=== PATIENT | male | born 1990 | race Caucasian/White ===

== ENCOUNTER 2018-12-10 05:06 | Emergency (ER) | payer MEDICAID, OTHER ==
[~2018-12-10] VITALS: Ht 175.3 cm; Wt 79.3 kg
[2018-12-10 05:15] VITALS: Ht 175.3 cm; Wt 79.3 kg
--- NOTE | 2018-12-10 06:31 | ERD ---
ER Documentation Chief Complaint Chief Complaint R pelvic/scrotal pain since last nite HPI This is a 28-year-old male with history of meth abuse, last used 2 days ago presents to the ED with right-sided testicular pain and swelling times 2 days. Patient states he was being given "aggressive "oral intercourse a few days ago when he woke up with right-sided scrotal pain the day afterwards. Patient states he initially felt a little lump on his right testicle which has since been getting progressively bigger. Patient states he woke up this morning with a swollen and painful testicle and therefore came here for further evaluation. Scrotal pain is described as heavy and worse with certain movements. He denies any other trauma. He also reports urinary frequency since having oral intercourse. He denies any dysuria, hematuria, fever, nausea, vomiting, flank pain or abdominal pain. He is otherwise healthy with no other complaints. ROS All systems reviewed and are negative except as per history of present illness. Medications Home Meds Active Scripts Doxycycline Hyclate* (Doxycycline Hyclate*) 100 Mg Tablet.dr, 100 MG PO BID for 10 Days, TAB Prov:JODI MAGALLANES PA-C 12/10/18 Allergies Allergies: Coded Allergies: plum (Verified Allergy, Unknown, 12/10/18) PMhx/Soc History of Surgery: No Anesthesia Reaction: No Hx Neurological Disorder: No Hx Respiratory Disorders: No Hx Cardiac Disorders: No Hx Psychiatric Problems: No Hx Miscellaneous Medical Probl: No Hx Alcohol Use: Yes Hx Substance Use: Yes (METH) Hx Tobacco Use: Yes Smoking Status: Current some day smoker Physical Exam Vitals Vital Signs Date Temp Pulse Resp B/P (MAP) Pulse Ox O2 O2 Flow FiO2 Time Delivery Rate 12/10/18 98.9 79 18 118/69 99 Room Air 08:54 (85) 12/10/18 99.2 85 18 115/68 99 05:15 (84) Physical Exam Const: No acute distress Head: Atraumatic Eyes: Normal Conjunctiva ENT: Normal External Ears, Nose and Mouth. Neck: Full range of motion. No meningismus. Resp: Clear to auscultation bilaterally Cardio: Regular rate and rhythm, no murmurs Abd: Soft, non tender, non distended. Normal bowel sounds. Exam: Scrotum: Normal Hernia: None Testes/Epid: + Right testicle moderate tenderness to palpation, erythematous, swollen. Left testicle normal. Normal lie. Cremaster: Reflex intact Lymph: No inguinal lymphadenopathy Discharge: None Skin: No petechiae or rashes Back: No midline or flank tenderness Ext: No cyanosis, or edema Neur: Awake and alert Psych: Normal Mood and Affect Results 24 hrs Laboratory Tests Test 12/10/18 07:30 Urine Color YELLOW Urine Clarity CLEAR Urine pH 5.0 Urine Specific [place] 1.020 Urine Ketones NEGATIVE mg/dL Urine Nitrite NEGATIVE mg/dL Urine Bilirubin NEGATIVE mg/dL Urine Urobilinogen NEGATIVE mg/dL Urine Leukocyte Esterase NEGATIVE Bryant/ul Urine Hemoglobin NEGATIVE mg/dL Urine Glucose NEGATIVE mg/dL Urine Total Protein NEGATIVE mg/dl Current Medications Medications Dose Sig/Taqueria Start Time Status Last (Trade) Ordered Route PRN Stop Time Admin Dose Reason Admin Ceftriaxone 250 mg ONCE ONCE 12/10/18 DC 12/10/18 Sodium IM 09:00 08:46 (Rocephin) 12/10/18 09:00 Ceftriaxone 50 ml @ ONCE ONCE 12/10/18 DC Sodium 100 mls/hr IVPB 09:00 12/10/18 09:00 Procedures/MDM EMERGENT LABS AND DIAGNOSTIC STUDIES: Lab Results above were reviewed and interpreted by me as below. Urine: no significant hematuria or pyuria Radiology Results as interpreted by Radiology: PROCEDURE: US Scrotum. CLINICAL INDICATION: Pain TECHNIQUE: Multiple sonographic images of the scrotal region were obtained utilizing a linear array transducer with grayscale and color-flow and a Doppler imaging. The images were reviewed on a high-resolution PACS workstation. COMPARISON: None. FINDINGS: The right testicle measures 5.0 x 3.2 x 3.6 cm and the left testicle measures 5.3 x 2.6 x 2.9 cm. Both testicles demonstrate normal echotexture and vascularity. There is no evidence of torsion. Pronounced hyperemia and enlargement of the right epididymis compared with the left, indicating acute inflammation. Small right hydrocele. Scrotal wall is unremarkable. IMPRESSION: 1. Findings consistent with right epididymitis. 2. Small right hydrocele. 3. Negative for torsion. Nursing Notes Reviewed. Previous Medical Records requested via the Electronic Health Record. EMERGENCY DEPARTMENT COURSE / MEDICAL DECISION MAKING: Prior to discharge, patients vital signs have been reviewed SPECIALIST FOLLOW UP RECOMMENDED: None Patient has been advised to follow up with primary care in 1-2 days. 28 yo M presents with testicular pain and swelling status post receptive oral intercourse. Pt has significant right epididymal tenderness and swelling. UA unremarkable. US confirmed epididymitis. Given's pt's high risk sexual activity, will treat with Ceftriaxone 250 mg IM here and discharge home with Doxycycline for the next few days. History and physical not consistent with Vivi's gangr mony, testicular torsion, incarcerated/strangulated hernia, abscess, severe abscess or other emergent cause. Pt was a given copy of his results and encouraged safe sexual practices. I recommended examining and treating partner for possible urethral or cervical STI. Follow up with PCP this week. He was discharged with Doxycycline and follow up with PCP in 2 days. He is welcome to take over the counter NSAIDs, applying ice and keeping scrotum elevated for additional pain relief. Return to the ED for any new or worsening symptoms. Departure Diagnosis: Primary Impression: Epididymitis Additional Impression: High risk sexual behavior High risk sexual behavior type: heterosexual Qualified Codes: Z72.51 - High risk heterosexual behavior Condition: Stable Patient Instructions: Epididymitis [facility]errals: [facility] Comments U/S consistent with epdidymitis. Recommend abx, NSAIDs, local application of ice, and scrotal elevation. Follow up with PCP in 2 days, otherwise return to the ED for any new or worsening symptoms. JODI MAGALLANES PA-C Dec 10, 2018 06:31
[2018-12-10] MEDS ORDERED: DOXY100T20 PO (08:37)
[2018-12-10 08:54] VITALS: BP 118/69; PULSE 79; RESP 18
[2018-12-10] MEDS ORDERED: CEFTRIAXONE 250 MG INJ IM ONE (09:00)
[2018-12-10] MEDS ORDERED: CEFTRIAXONE 1 GM/50 ML (PMX) 50 ML IVPB ONE (09:00)
== END 2018-12-10 08:56 | disposition home or self-care (01) ==
LOC: FTE 05:06
DX: N45.1 Epididymitis (principal); F17.210 Nicotine dependence, cigarettes, uncomplicated; Z72.51 High risk heterosexual behavior
CPT/HCPCS: 76870; 81003; 87086; J0696; 96372